=== PATIENT | female | born 1980 | race Caucasian/White ===

== ENCOUNTER 2017-03-05 21:07 | Emergency (ER) | payer BC ==
[2017-03-05 21:26] VITALS: RESP 16
[2017-03-05] MEDS ORDERED: KETOROLAC 15 MG/1 ML VIAL IVP ONE (21:33)
[2017-03-05] MEDS ORDERED: Sodium Chloride 0.9% 1,000 ML PRIMARY IV ONE (21:33)
[2017-03-05] MEDS ORDERED: ONDANSETRON 4 MG/2 ML VIAL IVP ONE (21:33)
--- NOTE | 2017-03-05 21:39 | PDOC ---
Gen Adult / Medical Screen HPI - General Chief Complaint: General Medical Stated Complaint: NAUSEA/VOMITING/DIARRHEA Date Seen by Provider: 03/05/17 Time Seen by Provider: 21:20 Source: POSITIVE: Patient Exam Limitations: POSITIVE: No limitations Nurse's Notes Reviewed & Considered: Yes - Indicators Temperature Between 95 and 101 Degrees: Yes Respirations Between 12 and 20: Yes Blood Pressure Between 100-165 (sys) and 60-100 (vann): Yes Pulse Range Between 60-105 (100 for age > 60 years): Yes Severe Pain (Greater than 5/10 Reported): No Chest or Abdominal Pain: No Inability to Walk: No Pt Reports Active High Risk Cond. (TB/Hepatitis/HIV/Chemo): No Abnormal Mental Status: No - History of Present Illness Initial Comments: This is a very pleasant 36-year-old female who is in no acute distress. Patient comes in today with a chief complaint of nausea vomiting and diarrhea. This began on . On she spent 10 hours in 90 plus temperatures mowing. She subsequently began to have episodes of nausea vomiting and diarrhea. Her symptoms escalate anytime she gets hot or takes a hot shower. She also has headache, sore throat, myalgias, but denies any fever chills or sweats at this time. No hematuria or dysuria, no vaginal discharge. Body Location Affected: REPORTS: Abdomen Timing: REPORTS: Intermittent Duration: <1 week Similar Symptoms Previously: No Recent Care Received: REPORTS: Denies Any Prior Injuries Related to Current Complaint?: No - Patient Home Medications Home Medications: Home Medications Escitalopram Oxalate [Lexapro] 1 tab PO HS 10/27/12 predniSONE Tab [Deltasone Tab] 1 tab PO DAILY 10/27/12 Mycophenolate Mofetil [Cellcept] 6 cap PO daily 11/05/12 Alendronate Sodium [Fosamax] 1 tab PO WEEKLY tab 08/03/13 Estrogens, Conjugated [Premarin] 1 tab PO DAILY tab 08/03/13 Hydroxychloroquine Sulfate [Plaquenil] 200 mg PO DAILY #1.5 tab 08/03/13 Dextroamphetamine/Amphetamine [Adderall 20 mg Tablet] 20 mg PO DAILY 03/05/17 - Patient Allergies Allergies/Adverse Reactions: Allergies Allergy/AdvReac Type Severity Reaction Status Date / Time No Known Allergies Allergy Verified 03/05/17 21:15 Past Medical History - heen HEENT History: Denies History Cardiovascular History: Denies History Respiratory History: Denies History Gastrointestinal History: Denies History Genitourinary History: Denies History Endocrine History: Other (please comment) Additional Endocrine History: DERMATOMYOCITIS Musculoskeletal History: Denies History Neurological History: Denies History Blood Disorders: Denies History Psychiatric History: Denies History History of Sexually Transmitted Diseases: No Female Reproductive History: Hysterectomy Obstetrical History: Denies History Cancer History: Denies History In Past Year Been Physically Harmed or Verbally Threatened: No History of MDRO: No History of Other Communicable Diseases: No Tobacco Use: Never Smoker Alcohol Use: Rarely Substance Use Type: None Previous Surgical History: Yes Anesthesia Reactions: No Significant Family History: No pertinent family hx ROS - Limitations ROS Limitations: No Limitations Constitution: REPORTS: Denies Symptoms Cardiovascular: REPORTS: Denies Cardiac Symptoms Respiratory: REPORTS: Denies Resp Symptoms Neurological: REPORTS: Headache Gastrointestinal: REPORTS: Abdominal Pain, Nausea, Vomitting, Diarrhea Musculoskeletal: REPORTS: Muscle Aches Genitourinary: REPORTS: Denies Symptoms Eyes: REPORTS: Denies Symptoms ENT: REPORTS: Sore Throat Skin: REPORTS: Denies Skin Symptoms Lympathic: REPORTS: Denies Lympathic Symptoms Immunologic: POSITIVE: Denies Symptoms Psychiatric: POSITIVE: Denies Psych Symptoms Gen Adult/Medical Screen Exam - General Appearance General Appearance: POSITIVE: Alert, Cooperative, No Acute Distress, No Evidence of Trauma - HEENT HEENT: POSITIVE: Head Inspection Nml, Eyes Inspection Nml, Ears Inspection Nml, Nose Inspection Nml, Oral/Dental Inspect. Nml, Pharynx Inspect. Nml, PERRL, EOMI - Pupils Pupil Size: 5 mm: Bilateral - Neck Neck: POSITIVE: Normal Inspection, Thyroid Normal - Respiratory Respiratory: POSITIVE: No Respiratory Distress, Breath Sounds Normal, Chest Non- Tender - Cardiovascular Cardiovascular: POSITIVE: Regular Rate & Rhythm, No Murmur, No Gallop, PMI Normal Peripheral Pulses: Radial (R): 3+ - Abdomen Abdomen: Soft: (All Quadrants), Normal Bowel Sounds: (All Quadrants), Denies Tenderness: (All Quadrants), No Splenomegaly: (All Quadrants), No Hepatomegaly: (All Quadrants), No Guarding: (All Quadrants), No Rebound: (All Quadrants), No Palpable Pulse: (All Quadrants), No Palpabale Mass: (All Quadrants), No Distention: (All Quadrants), No Rigidity: (All Quadrants) - Back Back: POSITIVE: Normal Inspection - Neurological / Psychological Mental Status: POSITIVE: Mood Normal, Affect Normal Orientation: POSITIVE: Oriented x 3 - Skin Skin: POSITIVE: Normal Color, Warm, Dry, No Rash - Extremities Extremity: Non-Tender: (All Extremities), Normal ROM: (All Extremities), Normal Inspection: (All Extremities), Pelvis Stable: (All Extremities) Gen Adlt/Medical Scrn Progress - Results Reviewed by me Xrays/CTs/US Reviewed by me: Yes Discussed with Radiologist: No Lab Results Reviewed: Yes Lab Results:: Laboratory Results 03/05/17 03/05/17 Range/Units 21:39 21:59 WBC 5.49 (4.8-10.8) 10^3/uL RBC 4.52 (4.20-5.40) 10^6/uL Hgb 13.5 (12.0-16.0) g/dL Hct 39.4 (37.0-47.0) % MCV 87.2 (81-99) FL MCH 29.9 (27-31) PG MCHC 34.3 (33-37) g/dL RDW Std Deviation 41.0 (39-50) fL RDW Coeff of Jai 13.2 (11.5-14.5) % Plt Count 179 (140-350) 10*3/uL MPV 9.9 (7.4-12.2) FL Immature Gran % (Auto) 0 (0-5) % Neut % (Auto) 88.6 H (50-80) % Lymph % (Auto) 6.0 L (10-50) % [place] % (Auto) 4.9 L (5-15) % Eos % (Auto) 0.5 (0-8) % Baso % (Auto) 0 (0-1) % Immature Gran # (Auto) 0 10*3/UL Neut # (Auto) 4.86 10*3/UL Lymph # (Auto) 0.33 10*3/uL [place] # (Auto) 0.27 L (0.3-0.8) 10*3/UL Eos # (Auto) 0.03 10*3/UL Baso # (Auto) 0 10*3/UL WBC Morphology Comment Normal morphology (NORM) Plt Morphology Comment Normal morphology (NORM) RBC Morph Comment Normal morphology (NORM) Sodium 137 (135-145) meq/L Potassium 3.2 L (3.8-5.2) meq/L Chloride 104 (98-112) meq/L Carbon Dioxide 26 (23-33) meq/L Anion Gap 7 (5-20) BUN 14 (7-22) mg/dL Creatinine 0.8 (0.50-1.20) mg/dL Estimated GFR > 60 (>60 ml/min/1.73m(2)) BUN/Creatinine Ratio 17.50 (6-20) Glucose 101 (78-110) mg/dL Calculated Osmolality 284.0 (267-292) mOsm/kg Calcium 8.6 L (8.7-10.7) mg/dL Magnesium 1.7 (1.6-2.4) mg/dL Total Bilirubin 0.7 (0.3-1.2) mg/dL AST 28 (8-39) IU/L ALT 28 (9-52) IU/L Alkaline Phosphatase 86 (38-126) IU/L C-Reactive Protein 2.2 H (0.0-0.9) mg/dL Total Protein 6.6 (6.1-8.0) g/dL Albumin 3.8 (3.5-4.8) g/dL Globulin 2.8 (2.50-4.10) g/dL Albumin/Globulin Ratio 1.30 (1.3-2.0) mg/g TSH 0.941 (0.2700-4.2000) uIU/mL Free T4 1.01 (0.93-1.71) ng/dL Ur Collection Type Clean catch urine Urine Color Yellow Urine Clarity Clear (CLEAR) Urine pH 7.0 (5.0-8.5) Ur Specific [place] 1.020 (1.005-1.030) Urine Protein Trace (NEG) mg/dl Urine Glucose (UA) Negative (NEG) mg/dL Urine Ketones 40 (NEG) Urine Occult Blood Negative (NEG) Urine Nitrate Negative (NEG) Urine Bilirubin Negative (NEG) Urine Urobilinogen 2.0 (0.2) EU/dL Ur Leukocyte Esterase Negative (NEG) Ur Culture Indicated? Culture not set - Patient's Progress Pain Medication Addressed: POSITIVE: Yes Re-Examine Time: 22:40 Status: POSITIVE: Improved MDM / ED Course: Patient was examined, an IV started, blood drawn and sent to the lab for studies , radiographic examinations were obtained. Findings: CBC shows normal white count hemoglobin and hematocrit. Comprehensive metabolic panel is unremarkable. Magnesium is normal. Thyroid panel is within normal limits. C-reactive protein is elevated at 2.2. X-ray of her chest and abdomen per my interpretation, shows no acute cardiopulmonary decompensation, nonspecific bowel gas pattern with no obstructive pattern appreciated. Assessment: Nausea vomiting and diarrhea. Plan: Discharge home, Zofran, clear liquids for 24 hours, advance diet as tolerated. Follow-up with primary care physician and 3-4 days if no improvement. Return to the emergency department if fevers over 102.5 increased vomiting or diarrhea, or blood in vomit or stool. - Consult Counseled: POSITIVE: Patient, RE: Lab Results, RE: Radiology Results, RE: DX, RE : Need for F/U Patient Care Time - Estimated PCT Patient Care Time (In Minutes): 30 Vital Signs - Recent Vital Signs Vital Signs: Vital Signs (Last 8 hours) Temp Pulse Resp BP Pulse Ox 03/05/17 21:09 97.7 F 61 16 141/88 96 - VS Reviewed Vital Signs Reviewed: Yes Discharge Clinical Impression: Nausea, vomiting, and diarrhea Discharge Disposition: Discharged to Home Condition: Stable Patient Instructions Given at Discharge: Acute Nausea and Vomiting (ED)
[2017-03-05 21:42] LABS: BASOPHILS # (AUTO) 0 10*3/UL; BASOPHILS % (AUTO) 0 % (0-1); EOSINOPHILS # (AUTO) 0.03 10*3/UL; EOSINOPHILS % (AUTO) 0.5 % (0-8); HEMATOCRIT 39.4 % (37.0-47.0); HEMOGLOBIN 13.5 g/dL (12.0-16.0); LYMPHOCYTES # (AUTO) 0.33 10*3/uL; MEAN CORPUSCULAR HEMOGLOBIN 29.9 PG (27-31); MEAN CORPUSCULAR HGB CONC 34.3 g/dL (33-37); MEAN CORPUSCULAR VOLUME 87.2 FL (81-99); MEAN PLATELET VOLUME 9.9 FL (7.4-12.2); MONOCYTES # (AUTO) 0.27 10*3/UL (0.3-0.8); MONOCYTES % (AUTO) 4.9 % (5-15); NEUTROPHILS # (AUTO) 4.86 10*3/UL; NEUTROPHILS % (AUTO) 88.6 % (50-80); RED BLOOD COUNT 4.52 10^6/uL (4.20-5.40)
[2017-03-05 21:43] LABS: PLATELET MORPHOLOGY COMMENT NORMAL MORPHOLOGY (NORM); RBC MORPHOLOGY COMMENT NORMAL MORPHOLOGY (NORM); WBC MORPHOLOGY COMMENT NORMAL MORPHOLOGY (NORM)
[2017-03-05 21:54] LABS: BLOOD UREA NITROGEN 14 mg/dL (7-22); C-REACTIVE PROTEIN 2.2 mg/dL (0.0-0.9); CALCIUM 8.6 mg/dL (8.7-10.7); EST GLOMERULAR FILTRATION > 60 (>60 ml/min/1.73m(2)); MAGNESIUM 1.7 mg/dL (1.6-2.4); SERUM ALBUMIN 3.8 g/dL (3.5-4.8)
[2017-03-05 22:03] LABS: BILIRUBIN,URINE NEGATIVE (NEG); CLARITY,URINE CLEAR (CLEAR); COLOR,URINE YELLOW; GLUCOSE, URINE (UA) NEGATIVE (NEG); NITRATE,URINE NEGATIVE (NEG); OCCULT BLOOD,URINE NEGATIVE (NEG); PROTEIN,URINE TRACE mg/dl (NEG)
[2017-03-05 22:05] LABS: URINE SAMPLE TYPE CLEAN CATCH URINE
[2017-03-05 22:12] LABS: FREE T4 (FREE THYROXINE) 1.01 ng/dL (0.93-1.71)
[2017-03-05] MEDS ORDERED: Ondansetron ODT Tab 8 MG TAB PO SCH (22:45)
[2017-03-05] MEDS ORDERED: Ondansetron ODT Tab 4 MG TAB PO SCH (23:00)
[2017-03-05 23:30] VITALS: TEMP 99.4
--- NOTE | 2017-03-06 08:22 | DI ---
CHEST X-RAY WITH ABDOMINAL SERIES, 03/05/2017 9:39 PM : Clinical History: Fever with nausea, vomiting, and diarrhea. PA CHEST X-RAY: Previous Exam: None at this facility. There is no acute soft tissue or bony abnormality. There is no free air under the diaphragms. Heart s ize is normal. Lungs are clear. Mediastinal structures are normal. There are no pulmonary nodules. Reading: Normal PA chest x-ray. ABDOMINAL SERIES: Previous Exam: None at this facility. KUB and upright abdomen films are submitted. There are no soft tissue or bony abnormalities. Bowel ga s pattern, psoas margins, and flank stripes are normal. There is no free air or fluid. There are no a bnormal radiodensities. There is hepatomegaly. Readin. No acute abnormalities are noted. 2. Hepatomegaly.
== END 2017-03-05 22:55 | disposition home or self-care (01) ==
LOC: ER 21:07
DX: R11.2 Nausea with vomiting, unspecified (principal); R19.7 Diarrhea, unspecified; R10.84 Generalized abdominal pain
CPT/HCPCS: 74022; 80053; 81003; 83735; 84439; 84443; 85025; 86140; 96361; 96374; 96375; 99283 ×2; J2405; J1885; J7030